=== PATIENT | female | born 1965 | race Hispanic/Latino ===

== ENCOUNTER 2022-04-04 14:57 | Inpatient (IN) | payer OTHER ==
[~2022-04-04] VITALS: Ht 149.9 cm; Wt 60.3 kg
[2022-04-04 15:28] LABS: BASOPHILS % (AUTO) 0.7 % (0.0-5.0); EOSINOPHILS % (AUTO) 3.3 % (0.0-8.0); HEMATOCRIT 27.1 % (36-48); LYMPHOCYTES % (AUTO) 12.3 % (21.0-51.0); MEAN CORPUSCULAR HEMOGLOBIN 28.3 pg (27.0-33.0); MEAN CORPUSCULAR HGB CONC 32.8 g/dL (32.0-36.0); MEAN CORPUSCULAR VOLUME 86.3 fL (79-99); MONOCYTES % (AUTO) 6.5 % (3.0-13.0); PLATELET COUNT (AUTO) 402 K/uL (130-400); RED BLOOD CELL COUNT(AUTO) 3.14 MIL/uL (4.00-5.50); RED CELL DISTRIBUTION WIDTH 13.6 % (11.0-15.5); WHITE BLOOD COUNT (AUTO) 8.7 K/uL (4.8-10.8)
[2022-04-04 15:39] LABS: CREATININE 1.7 mg/dL (0.5-1.5); POTASSIUM 4.3 mmol/L (3.5-5.1)
[2022-04-04 15:46] LABS: ALBUMIN 1.3 g/dL (3.5-5.0); BILIRUBIN,TOTAL 0.1 mg/dL (0.2-1.0); TOTAL PROTEIN, SERUM 5.5 g/dL (6.0-8.3)
[2022-04-04] MEDS ORDERED: IOHEXOL-350 75 ML VIAL IV ONE (17:20)
[2022-04-04] MEDS ORDERED: GLUCAGON 1MG KIT 1 MG ML IM PRN (20:30)
[2022-04-04] MEDS ORDERED: ACETAMINOPHEN 325 MG TAB PO PRN (20:30)
[2022-04-04] MEDS ORDERED: ONDANSETRON 4MG INJ IV PRN (20:30)
[2022-04-04] MEDS ORDERED: DIPHENHYDRAMINE HCL 25 MG CAPSULE PO PRN (20:30)
[2022-04-04] MEDS ORDERED: DEXTROSE 50%-WATER 50 ML DISP.SYRIN IV PRN (20:30)
[2022-04-04] MEDS ORDERED: ACETAMINOPHEN WITH CODEINE 1 TAB TAB PO PRN ×2 (20:30)
[2022-04-04] MEDS ORDERED: MAG/ALUM/SIMETH 30 ML UDCUP PO PRN (20:30)
[2022-04-04] MEDS: HYDRALAZINE 20MG/ML VIAL IV PRN (22:08)
[2022-04-04] MEDS: INSULIN HUMULIN R 100 UNIT/ML 3ML SQ SCH (22:09)
[2022-04-04 22:38] VITALS: BP 136/65
[2022-04-04] MEDS: 0.9%NACL 1000ML 1,000 ML IV SCH (23:00)
[2022-04-05 04:00] VITALS: BP 152/62
[2022-04-05 04:38] LABS: BASOPHILS % (AUTO) 0.5 % (0.0-5.0); EOSINOPHILS % (AUTO) 4.4 % (0.0-8.0); HEMATOCRIT 23.7 % (36-48); LYMPHOCYTES % (AUTO) 16.6 % (21.0-51.0); MEAN CORPUSCULAR HEMOGLOBIN 28.2 pg (27.0-33.0); MEAN CORPUSCULAR HGB CONC 33.3 g/dL (32.0-36.0); MEAN CORPUSCULAR VOLUME 84.6 fL (79-99); MONOCYTES % (AUTO) 8.4 % (3.0-13.0); NEUTROPHILS % (AUTO) 69.7 % (40.0-77.0); PLATELET COUNT (AUTO) 357 K/uL (130-400); RED CELL DISTRIBUTION WIDTH 13.6 % (11.0-15.5); WHITE BLOOD COUNT (AUTO) 7.5 K/uL (4.8-10.8)
[2022-04-05 05:01] LABS: ALBUMIN 1.2 g/dL (3.5-5.0); BILIRUBIN,TOTAL 0.1 mg/dL (0.2-1.0); CREATININE 1.5 mg/dL (0.5-1.5); MAGNESIUM 2.1 mg/dL (1.80-2.40); PHOSPHORUS 4.3 mg/dL (2.5-4.9); POTASSIUM 4.2 mmol/L (3.5-5.1)
[2022-04-05] MEDS: INSULIN HUMULIN R 100 UNIT/ML 3ML SQ SCH ×4 (06:37→20:59)
[2022-04-05 08:00] VITALS: BP 172/72
[2022-04-05 12:00] VITALS: BP 180/75
[2022-04-05] MEDS ORDERED: HYDROMORPHONE 0.5 MG SYG (0.5MG/0.5ML) IVP PRN ×2 (15:00)
[2022-04-05 16:00] VITALS: BP 176/76
[2022-04-05] MEDS ORDERED: ATOR40TA69 PO (16:02)
[2022-04-05] MEDS ORDERED: METF-446 PO (16:02)
[2022-04-05] MEDS ORDERED: METO50TA18 PO (16:02)
[2022-04-05] MEDS ORDERED: LISI20TA24 PO (16:02)
[2022-04-05] MEDS ORDERED: CLOP75TA14 PO (16:02)
[2022-04-05] MEDS ORDERED: AMLO-258 PO (16:02)
[2022-04-05 16:50] LABS: CHLORIDE,URINE RANDOM 85 mmol/L (110-250); POTASSIUM,URINE RANDOM 23 mmol/L (25-125); SODIUM,URINE RANDOM 74 mmol/l (40-220)
[2022-04-05 20:00] VITALS: BP 173/74
[2022-04-05] MEDS: ATORVASTATIN 40 MG TABLET PO SCH (20:38)
[2022-04-05] MEDS: METOPROLOL TARTRATE 50 MG TAB PO SCH (20:39)
[2022-04-05] MEDS: LISINOPRIL 20 MG TABLET PO SCH (20:39)
[2022-04-05 21:03] LABS: HEMOGLOBIN A1C 9.4 % (4.0-6.0)
[2022-04-06] VITALS (29 sets, daily range): BP systolic 118–172; BP diastolic 59–80
[2022-04-06] MEDS: 0.9%NACL 1000ML 1,000 ML IV SCH ×2 (03:44→21:44)
[2022-04-06] MEDS: HYDRALAZINE 20MG/ML VIAL IV PRN (04:24)
[2022-04-06 05:05] LABS: BASOPHILS % (AUTO) 0.7 % (0.0-5.0); EOSINOPHILS % (AUTO) 1.2 % (0.0-8.0); HEMATOCRIT 24.6 % (36-48); LYMPHOCYTES % (AUTO) 12.2 % (21.0-51.0); MEAN CORPUSCULAR HEMOGLOBIN 28.6 pg (27.0-33.0); MEAN CORPUSCULAR HGB CONC 33.3 g/dL (32.0-36.0); MEAN CORPUSCULAR VOLUME 85.7 fL (79-99); MONOCYTES % (AUTO) 4.6 % (3.0-13.0); NEUTROPHILS % (AUTO) 80.6 % (40.0-77.0); PLATELET COUNT (AUTO) 372 K/uL (130-400); RED BLOOD CELL COUNT(AUTO) 2.87 MIL/uL (4.00-5.50); RED CELL DISTRIBUTION WIDTH 13.8 % (11.0-15.5); WHITE BLOOD COUNT (AUTO) 8.4 K/uL (4.8-10.8)
[2022-04-06 05:25] LABS: ALBUMIN 1.2 g/dL (3.5-5.0); BILIRUBIN,TOTAL 0.2 mg/dL (0.2-1.0); CREATININE 1.8 mg/dL (0.5-1.5); POTASSIUM 4.5 mmol/L (3.5-5.1); TOTAL PROTEIN, SERUM 5.1 g/dL (6.0-8.3)
[2022-04-06] MEDS: INSULIN HUMULIN R 100 UNIT/ML 3ML SQ SCH ×4 (06:47→22:01)
[2022-04-06] MEDS: AMLODIPINE 5 MG TAB PO SCH (08:46)
[2022-04-06] MEDS: LISINOPRIL 20 MG TABLET PO SCH ×2 (08:46→21:45)
[2022-04-06] MEDS: METOPROLOL TARTRATE 50 MG TAB PO SCH ×2 (08:46→21:45)
[2022-04-06] MEDS ORDERED: CEFAZOLIN SODIUM 1 GM VIAL ONE (12:24)
[2022-04-06] MEDS ORDERED: CEFAZOLIN SODIUM 2 GM VIAL IV ONE (12:50)
[2022-04-06] MEDS ORDERED: MIDAZOLAM HCL 1 MG/ML 2ML VIAL ONE (12:55)
[2022-04-06] MEDS ORDERED: PROPOFOL 10 MG/ML 20ML VIAL IV ONE (12:55)
[2022-04-06] MEDS ORDERED: FENTANYL CITRATE PF 50 MCG/1 ML 2ML VIAL ONE (12:55)
[2022-04-06] MEDS ORDERED: ROCURONIUM 10MG/1ML SYR 10 MG/ML ML ONE ×2 (12:55→13:09)
[2022-04-06] MEDS ORDERED: CEFAZOLIN SODIUM 1 GM VIAL IVP PRN (13:00)
[2022-04-06] MEDS ORDERED: GLYCOPYRROLATE 1 MG/5 ML SYRINGE ONE (13:16)
[2022-04-06] MEDS ORDERED: EPHEDRINE SULFATE 50 MG/ML AMPULE ONE (13:30)
[2022-04-06] MEDS ORDERED: ROPIVACAINE 0.5% 5MG/ML 30ML IJ ONE (14:19)
[2022-04-06] MEDS ORDERED: NEOSTIGMINE 5MG/5ML SYR IV ONE (14:32)
[2022-04-06] MEDS ORDERED: ONDANSETRON 4MG INJ ONE (14:46)
[2022-04-06] MEDS ORDERED: MEPERIDINE-PF 25 MG/ML SYG ONE ×2 (14:51→15:02)
[2022-04-06] MEDS ORDERED: FERROUS FUMARATE 324 MG TABLET PO PRN (15:00)
[2022-04-06] MEDS ORDERED: CALCIUM CARB 500MG PO PRN (15:00)
[2022-04-06] MEDS ORDERED: LIDOCAINE HCL-MPF 1% 2ML VIAL IV PRN (15:00)
[2022-04-06] MEDS ORDERED: POTASSIUM CHLORIDE 20MEQ/100ML 100 ML IV PRN (15:00)
[2022-04-06] MEDS ORDERED: POTASSIUM CHLORIDE 10% ELIXIR 20 MEQ/15 ML UDCUP PO PRN (15:00)
[2022-04-06] MEDS ORDERED: KCL 20 MEQ ERTAB PO PRN (15:00)
[2022-04-06] MEDS: FAMOTIDINE 20MG TAB PO SCH (21:44)
[2022-04-06] MEDS: ATORVASTATIN 40 MG TABLET PO SCH (21:44)
[2022-04-06] MEDS: CEFAZOLIN SODIUM 1 GM VIAL IVP SCH (21:44)
[2022-04-06] MEDS: TRAMADOL HCL 50 MG TABLET PO PRN (21:45)
[2022-04-07] VITALS (7 sets, daily range): BP systolic 153–178; BP diastolic 67–79
[2022-04-07 04:11] LABS: HEMATOCRIT 25.2 % (36-48); MEAN CORPUSCULAR HEMOGLOBIN 28.1 pg (27.0-33.0); MEAN CORPUSCULAR HGB CONC 31.7 g/dL (32.0-36.0); MEAN CORPUSCULAR VOLUME 88.4 fL (79-99); RED BLOOD CELL COUNT(AUTO) 2.85 MIL/uL (4.00-5.50); RED CELL DISTRIBUTION WIDTH 13.6 % (11.0-15.5); WHITE BLOOD COUNT (AUTO) 11.2 K/uL (4.8-10.8)
[2022-04-07 04:18] LABS: INR 0.93 (0.85-1.15); PROTHROMBIN TIME 9.7 SEC (9.6-11.6)
[2022-04-07 04:25] LABS: POTASSIUM 4.3 mmol/L (3.5-5.1)
[2022-04-07] MEDS: CEFAZOLIN SODIUM 1 GM VIAL IVP SCH (04:56)
[2022-04-07] MEDS: INSULIN HUMULIN R 100 UNIT/ML 3ML SQ SCH ×4 (06:32→20:18)
[2022-04-07] MEDS: FAMOTIDINE 20MG TAB PO SCH (08:37)
[2022-04-07] MEDS: AMLODIPINE 5 MG TAB PO SCH (08:37)
[2022-04-07] MEDS: METOPROLOL TARTRATE 50 MG TAB PO SCH ×2 (08:38→20:18)
[2022-04-07] MEDS: LISINOPRIL 20 MG TABLET PO SCH ×2 (08:38→20:18)
[2022-04-07] MEDS: POLYETHYLENE GLYCOL 3350 17 GM POWD.PACK PO SCH (08:38)
[2022-04-07] MEDS: TRAMADOL HCL 50 MG TABLET PO PRN (08:38)
[2022-04-07] MEDS ORDERED: METFORMIN HCL 500 MG TABLET ONE (11:40)
[2022-04-07] MEDS: CLOPIDOGREL 75MG TAB PO SCH (11:43)
[2022-04-07] MEDS ORDERED: TRAM50TA4 PO (12:16)
[2022-04-07] MEDS: METFORMIN HCL 500 MG TABLET PO SCH (17:04)
[2022-04-07] MEDS: ATORVASTATIN 40 MG TABLET PO SCH (20:17)
[2022-04-08 03:43] VITALS: BP 170/82
[2022-04-08 04:59] LABS: HEMATOCRIT 27.9 % (36-48); MEAN CORPUSCULAR VOLUME 85.1 fL (79-99); RED BLOOD CELL COUNT(AUTO) 3.28 MIL/uL (4.00-5.50); RED CELL DISTRIBUTION WIDTH 13.6 % (11.0-15.5); WHITE BLOOD COUNT (AUTO) 8.3 K/uL (4.8-10.8)
[2022-04-08 05:13] LABS: INR 0.94 (0.85-1.15); PROTHROMBIN TIME 10.3 SEC (9.6-11.6)
[2022-04-08 05:29] LABS: CREATININE 2.3 mg/dL (0.5-1.5); POTASSIUM 4.1 mmol/L (3.5-5.1)
[2022-04-08] MEDS: INSULIN HUMULIN R 100 UNIT/ML 3ML SQ SCH ×2 (06:28→11:30)
[2022-04-08 08:00] VITALS: BP 181/84
[2022-04-08] MEDS ORDERED: 0.9% NACL 500ML IV.SOLN 500 ML IV ONE (08:30)
[2022-04-08] MEDS: LISINOPRIL 20 MG TABLET PO SCH (08:55)
[2022-04-08] MEDS: METOPROLOL TARTRATE 50 MG TAB PO SCH (08:55)
[2022-04-08] MEDS: AMLODIPINE 5 MG TAB PO SCH (08:55)
[2022-04-08] MEDS: CLOPIDOGREL 75MG TAB PO SCH (09:57)
[2022-04-08] MEDS: FAMOTIDINE 20MG TAB PO SCH (09:57)
[2022-04-08] MEDS: METFORMIN HCL 500 MG TABLET PO SCH (09:58)
[2022-04-08] MEDS: POLYETHYLENE GLYCOL 3350 17 GM POWD.PACK PO SCH (09:58)
[2022-04-08 12:00] VITALS: BP 182/69
[2022-04-08] MEDS ORDERED: METOPROLOL TARTRATE 1 MG/ML 5ML VIAL IV SCH (13:00)
[2022-04-08 13:53] VITALS: BP 177/75
[2022-04-08 14:45] VITALS: BP 169/62
[2022-04-08] MEDS ORDERED: BISACODYL 5 MG TABLET.DR PO PRN (15:00)
[2022-04-09] MEDS ORDERED: BISACODYL 10 MG SUPP.RECT RC PRN (15:00)
== END 2022-04-08 18:00 | disposition home or self-care (01) | DRG 481 ==
LOC: EDH 14:57 → EDHIP 14:58 → OBSVTOIN 14:58 → INTOOBSV 14:58 → 4AH 22:38
PROVIDERS: ADMIT Internal Medicine; ATTEND Internal Medicine
PROC: 0QS634Z Reposition Right Upper Femur with Internal Fixation Device, Percutaneous Approach (ICD-10-PCS; principal; 2022-04-06 13:26)
DX: S72.011A Unspecified intracapsular fracture of right femur, initial encounter for closed fracture (principal); N17.9 Acute kidney failure, unspecified; I69.351 Hemiplegia and hemiparesis following cerebral infarction affecting right dominant side; I10 Essential (primary) hypertension; E11.9 Type 2 diabetes mellitus without complications; E78.5 Hyperlipidemia, unspecified; Z20.822 Contact with and (suspected) exposure to COVID-19; Z79.899 Other long term (current) drug therapy; I48.91 Unspecified atrial fibrillation; Z79.84 Long term (current) use of oral hypoglycemic drugs; W18.39XA Other fall on same level, initial encounter; Y93.89 Activity, other specified; Y92.89 Other specified places as the place of occurrence of the external cause; Y99.8 Other external cause status
CPT/HCPCS: 36415; 72193; 73503; 76770; 80048; 80051; 80053; 82948; 83036; 83735; 84100; 85025; 85027; 85610; 87635; 92610; 97039; A4606; G0378; J0360; J0690; J1170; J1815; J2175; J2250; J2405; J2704; J2710; J2795; J3010; J3490; J7030; J7040; J7120; Q9967

== ENCOUNTER 2022-08-26 14:39 | Inpatient (IN) | payer OTHER ==
[~2022-08-26] VITALS: Ht 149.9 cm; Wt 68.2 kg
[~2022-08-26 14:39] MED LIST: AMLO-258 PO; ATOR40TA69 PO; CLOP-31 PO; LISI20TA24 PO; METF-446 PO; METO50TA18 PO
[2022-08-26 15:09] LABS: EOSINOPHILS % (AUTO) 5.9 % (0.0-8.0); LYMPHOCYTES % (AUTO) 15.3 % (21.0-51.0); MEAN CORPUSCULAR HEMOGLOBIN 29.5 pg (27.0-33.0); MEAN CORPUSCULAR HGB CONC 33.8 g/dL (32.0-36.0); MEAN CORPUSCULAR VOLUME 87.2 fL (79-99); MONOCYTES % (AUTO) 5.3 % (3.0-13.0); NEUTROPHILS % (AUTO) 72.2 % (40.0-77.0); NUCLEATED RED BLOOD CELLS 0.6 % (0.0-0.19); PLATELET COUNT (AUTO) 370 K/uL (130-400); RED BLOOD CELL COUNT(AUTO) 2.98 MIL/uL (4.00-5.50); RED CELL DISTRIBUTION WIDTH 15.7 % (11.0-15.5); WHITE BLOOD COUNT (AUTO) 6.3 K/uL (4.8-10.8)
[2022-08-26 15:39] LABS: CREATININE 3.4 mg/dL (0.5-1.5)
[2022-08-26 15:42] LABS: APPEARANCE,URINE CLOUDY (CLEAR); BILIRUBIN,URINE NEGATIVE (NEGATIVE); COLOR,URINE LIGHT-YELLOW (YELLOW); GLUCOSE, URINE (UA) 150 mg/dL (NEGATIVE); KETONES,URINE 5 mg/dL (NEGATIVE); LEUKOCYTE ESTERASE ,URINE 250 Leu/uL (NEGATIVE); NITRATE,URINE NEGATIVE (NEGATIVE); OCCULT BLOOD,URINE MODERATE (NEGATIVE); PROTEIN,URINE 600 mg/dL (NEGATIVE); UROBILINOGEN,URINE 0.2 mg/dL (0.2-1.0)
[2022-08-26 15:47] LABS: ALBUMIN 1.7 g/dL (3.5-5.0); TOTAL PROTEIN, SERUM 5.3 g/dL (6.0-8.3)
[2022-08-26 15:53] LABS: BACTERIA,URINE MOD /HPF (None Seen); MUCUS,URINE FEW LPF (None Seen); SQUAMOUS EPITHELIAL CELL,UR FEW /HPF (0-2); WBC,URINE 51-100 /HPF (0-1)
[2022-08-26] MEDS ORDERED: ONDANSETRON 4MG INJ IV PRN (18:30)
[2022-08-26] MEDS ORDERED: ACETAMINOPHEN 325 MG TAB PO PRN (18:30)
[2022-08-26 19:08] LABS: RETICULOCYTE % (AUTO) 3.13 % (0.42-2.23)
[2022-08-26 19:15] LABS: HEMOGLOBIN A1C 6.3 % (4.0-6.0)
[2022-08-26 19:23] LABS: INR 0.93 (0.85-1.15); PROTHROMBIN TIME 9.7 SEC (9.6-11.6)
[2022-08-26 19:24] LABS: PARTIAL THROMBOPLASTIN TIME 33.6 SEC (26.3-35.5)
[2022-08-26 19:36] LABS: % IRON SATURATION 15.7 % (22-44)
[2022-08-26 19:40] LABS: MAGNESIUM 1.6 mg/dL (1.80-2.40); PHOSPHORUS 4.8 mg/dL (2.5-4.9)
[2022-08-26 20:10] LABS: THYROID STIMULATING HORMONE 108.07 uIU/mL (0.36-3.74)
[2022-08-26] MEDS: HEPARIN 5,000 UNIT VIAL SQ SCH (20:49)
[2022-08-26] MEDS: HYDRALAZINE 25MG TABLET PO SCH (20:49)
[2022-08-26] MEDS: 0.9%NACL 1000ML 1,000 ML IV SCH (20:49)
[2022-08-26] MEDS: BISACODYL 5 MG TABLET.DR PO SCH (20:49)
[2022-08-26] MEDS: CEFTRIAXONE 1G VIAL IVP SCH (20:49)
[2022-08-26] MEDS: ACETAMINOPHEN 325 MG TAB PO PRN (21:02)
[2022-08-26 21:37] LABS: CHLORIDE,URINE RANDOM 52 mmol/L (110-250); POTASSIUM,URINE RANDOM 25 mmol/L (25-125)
[2022-08-26] MEDS: ISOSORBIDE DINITRATE 10MG TAB PO SCH (22:25)
[2022-08-27 00:26] VITALS: BP 128/64
[2022-08-27 03:46] VITALS: BP 176/67
[2022-08-27 03:49] LABS: BASOPHILS % (AUTO) 1.1 % (0.0-5.0); EOSINOPHILS % (AUTO) 5.7 % (0.0-8.0); HEMATOCRIT 24.9 % (36-48); MEAN CORPUSCULAR HEMOGLOBIN 29.5 pg (27.0-33.0); MEAN CORPUSCULAR HGB CONC 33.3 g/dL (32.0-36.0); MEAN CORPUSCULAR VOLUME 88.6 fL (79-99); MONOCYTES % (AUTO) 5.2 % (3.0-13.0); NEUTROPHILS % (AUTO) 72.8 % (40.0-77.0); NUCLEATED RED BLOOD CELLS 0.3 % (0.0-0.19); PLATELET COUNT (AUTO) 351 K/uL (130-400); RED BLOOD CELL COUNT(AUTO) 2.81 MIL/uL (4.00-5.50); RED CELL DISTRIBUTION WIDTH 15.7 % (11.0-15.5); WHITE BLOOD COUNT (AUTO) 6.3 K/uL (4.8-10.8)
[2022-08-27 04:03] LABS: ALBUMIN 1.6 g/dL (3.5-5.0); CREATININE 3.4 mg/dL (0.5-1.5)
[2022-08-27 04:19] LABS: B-TYPE NATRIURETIC PEPTIDE 276 pg/mL (0-100)
[2022-08-27 07:12] VITALS: BP 171/73
[2022-08-27] MEDS: FAMOTIDINE 20MG VIAL IV SCH (08:57)
[2022-08-27] MEDS: BISACODYL 5 MG TABLET.DR PO SCH ×2 (08:57→20:22)
[2022-08-27] MEDS: ISOSORBIDE DINITRATE 10MG TAB PO SCH ×3 (08:57→20:22)
[2022-08-27] MEDS: HYDRALAZINE 25MG TABLET PO SCH ×6 (08:57→20:24)
[2022-08-27] MEDS: HEPARIN 5,000 UNIT VIAL SQ SCH ×2 (08:58→20:24)
[2022-08-27] MEDS: 0.9%NACL 1000ML 1,000 ML IV SCH (08:59)
[2022-08-27] MEDS ORDERED: COMPOUND IV MISC 1 EACH IVSOLN MISC PRN (09:30)
[2022-08-27] MEDS ORDERED: EPOETIN ALFA-EPBX (NON-ESRD) 10,000 UNIT/ML VIAL SQ SCH (09:30)
[2022-08-27 10:01] LABS: MYOGLOBIN 622 ng/mL (10-92)
[2022-08-27 10:05] LABS: PROTEIN,URINE RANDOM 1240.3 mg/dL (0-11.9)
[2022-08-27 10:06] LABS: CREATINE KINASE, TOTAL 1025 U/L (21-232)
[2022-08-27] MEDS: SODIUM BICARBONATE 650 MG TAB PO SCH ×2 (10:28→20:24)
[2022-08-27] MEDS: LEVOTHYROXINE 75 MCG TABLET PO SCH (10:28)
[2022-08-27] MEDS: FUROSEMIDE 40MG VIAL IV SCH ×2 (10:29→16:59)
[2022-08-27] MEDS: IRON SUCROSE COMPLEX 300 MG in 0.9%NACL 50ML 50 ML IV SCH (10:29)
[2022-08-27 12:11] VITALS: BP 148/63
[2022-08-27 16:12] VITALS: BP 183/79
[2022-08-27] MEDS: CEFTRIAXONE 1G VIAL IVP SCH (16:59)
[2022-08-27 19:54] VITALS: BP 176/73
[2022-08-27] MEDS: ACETAMINOPHEN 325 MG TAB PO PRN (20:23)
[2022-08-28] VITALS (9 sets, daily range): BP systolic 128–182; BP diastolic 53–83
[2022-08-28] MEDS ORDERED: LABETALOL 20MG VIAL IV ONE (00:30)
[2022-08-28 04:44] LABS: BASOPHILS % (AUTO) 0.8 % (0.0-5.0); LYMPHOCYTES % (AUTO) 8.5 % (21.0-51.0); MEAN CORPUSCULAR HEMOGLOBIN 29.4 pg (27.0-33.0); MEAN CORPUSCULAR HGB CONC 32.1 g/dL (32.0-36.0); MEAN CORPUSCULAR VOLUME 91.6 fL (79-99); MONOCYTES % (AUTO) 5.6 % (3.0-13.0); NEUTROPHILS % (AUTO) 80.7 % (40.0-77.0); NUCLEATED RED BLOOD CELLS 0.7 % (0.0-0.19); PLATELET COUNT (AUTO) 328 K/uL (130-400); RED BLOOD CELL COUNT(AUTO) 2.62 MIL/uL (4.00-5.50); WHITE BLOOD COUNT (AUTO) 7.2 K/uL (4.8-10.8)
[2022-08-28 04:56] LABS: ALBUMIN 1.5 g/dL (3.5-5.0); CREATININE 3.4 mg/dL (0.5-1.5); MAGNESIUM 1.6 mg/dL (1.80-2.40); PHOSPHORUS 4.9 mg/dL (2.5-4.9); POTASSIUM 4.8 mmol/L (3.5-5.1)
[2022-08-28 05:03] LABS: INR 0.93 (0.85-1.15); PROTHROMBIN TIME 9.4 SEC (9.6-11.6)
[2022-08-28] MEDS: LEVOTHYROXINE 50 MCG TABLET PO SCH (05:47)
[2022-08-28] MEDS: FUROSEMIDE 40MG VIAL IV SCH ×3 (05:47→18:37)
[2022-08-28] MEDS ORDERED: DEXTROSE 50%-WATER 50 ML DISP.SYRIN IV ONE (05:58)
[2022-08-28] MEDS: ISOSORBIDE DINITRATE 10MG TAB PO SCH ×2 (08:28→22:27)
[2022-08-28] MEDS: HYDRALAZINE 25MG TABLET PO SCH ×4 (08:29→22:28)
[2022-08-28] MEDS: BISACODYL 5 MG TABLET.DR PO SCH (09:00)
[2022-08-28] MEDS: HEPARIN 5,000 UNIT VIAL SQ SCH ×2 (09:00→22:35)
[2022-08-28] MEDS: FAMOTIDINE 20MG VIAL IV SCH (09:48)
[2022-08-28] MEDS: SODIUM BICARBONATE 650 MG TAB PO SCH ×2 (09:48→22:27)
[2022-08-28] MEDS: IRON SUCROSE COMPLEX 300 MG in 0.9%NACL 50ML 50 ML IV SCH (09:48)
[2022-08-28 09:59] LABS: GLUCOSE,BODY FLUID 91 mg/dL (1-40)
[2022-08-28] MEDS: LEVOTHYROXINE 75 MCG TABLET PO SCH (10:00)
[2022-08-28] MEDS ORDERED: LIDOCAINE HCL 1% 20 ML VIAL ONE (10:12)
[2022-08-28 10:34] LABS: ALBUMIN,BODY FLUID 0.1 g/dL
[2022-08-28] MEDS ORDERED: RENAL DOSE IV SCH (14:30)
[2022-08-28] MEDS ORDERED: NIFEDIPINE 10 MG CAP PO SCH (14:30)
[2022-08-28 14:53] LABS: SPECIMENTYPE,BODY FLUID THORACENTESIS; TOTAL VOLUME,BODY FLUID 700 mL
[2022-08-28 14:54] LABS: APPEARANCE BODY FLUID SLIGHTLY CLOUDY (CLEAR); BODY FLUID RBC 975 /cu. mm.; BODY FLUID WBC 38 /cu. mm.
[2022-08-28] MEDS: MAGNESIUM 2GM PREMIX 50ML 50 ML IV SCH (14:54)
[2022-08-28 14:55] LABS: COLOR,BODY FLUID LT YELLOW (LT YELLOW)
[2022-08-28 14:58] LABS: BF LYMPHOCYTE 71 %; BF MONOCYTE 14 %
[2022-08-28 15:00] LABS: PH, BODY FLUID 7
[2022-08-28] MEDS: MEROPENEM 500 MG VIAL IVP SCH (15:41)
[2022-08-28 17:31] LABS: CREATININE,SERUM FOR CRCL 3.4 mg/dL (0.6-1.3)
[2022-08-28] MEDS ORDERED: PHARMACY COMMUNICATION MISC SCH (18:00)
[2022-08-28 18:09] LABS: COLLECTION PERIOD,URINE 24 HR; TOTAL VOLUME 24HRS,URINE 1700 mL; TPROTEIN TIMED,URINE 384 mg/dL; TPROTEIN U,24HR CALC 6528 mg/24HR (0-165)
[2022-08-28] MEDS ORDERED: ALBUMIN (HUMAN) 25% 50 ML IV SCH (21:00)
[2022-08-28] MEDS: NIFEDIPINE 10 MG CAP PO SCH (22:28)
[2022-08-29] MEDS: FUROSEMIDE 40MG VIAL IV SCH ×2 (03:01→09:18)
[2022-08-29] MEDS: MEROPENEM 500 MG VIAL IVP SCH ×2 (03:01→15:09)
[2022-08-29 03:41] VITALS: BP 126/56
[2022-08-29 04:45] LABS: BASOPHILS % (AUTO) 0.7 % (0.0-5.0); EOSINOPHILS % (AUTO) 3.8 % (0.0-8.0); HEMATOCRIT 22.7 % (36-48); LYMPHOCYTES % (AUTO) 9.6 % (21.0-51.0); MEAN CORPUSCULAR HEMOGLOBIN 29.3 pg (27.0-33.0); MEAN CORPUSCULAR VOLUME 88.7 fL (79-99); NEUTROPHILS % (AUTO) 78.5 % (40.0-77.0); NUCLEATED RED BLOOD CELLS 1.2 % (0.0-0.19); PLATELET COUNT (AUTO) 315 K/uL (130-400); RED BLOOD CELL COUNT(AUTO) 2.56 MIL/uL (4.00-5.50); RED CELL DISTRIBUTION WIDTH 15.8 % (11.0-15.5); WHITE BLOOD COUNT (AUTO) 8.4 K/uL (4.8-10.8)
[2022-08-29 05:07] LABS: CREATININE 3.7 mg/dL (0.5-1.5); POTASSIUM 4.5 mmol/L (3.5-5.1)
[2022-08-29] MEDS: LEVOTHYROXINE 50 MCG TABLET PO SCH (06:53)
[2022-08-29 08:00] VITALS: BP 134/62
[2022-08-29] MEDS: LEVOTHYROXINE 75 MCG TABLET PO SCH (08:31)
[2022-08-29] MEDS: ISOSORBIDE DINITRATE 10MG TAB PO SCH ×2 (09:05→21:01)
[2022-08-29] MEDS: HYDRALAZINE 25MG TABLET PO SCH ×3 (09:05→21:02)
[2022-08-29] MEDS: SODIUM BICARBONATE 650 MG TAB PO SCH ×3 (09:05→21:02)
[2022-08-29] MEDS: NIFEDIPINE 10 MG CAP PO SCH ×3 (09:05→21:01)
[2022-08-29] MEDS: HEPARIN 5,000 UNIT VIAL SQ SCH ×2 (09:12→21:35)
[2022-08-29] MEDS: IRON SUCROSE COMPLEX 300 MG in 0.9%NACL 50ML 50 ML IV SCH (09:13)
[2022-08-29 11:54] LABS: HEMOGLOBIN A1C 6.5 % (4.0-6.0)
[2022-08-29 12:00] VITALS: BP 103/47
[2022-08-29 16:00] VITALS: BP 128/62
[2022-08-29 18:41] LABS: HEPATITIS B SURFACE ANTIGEN Non-Reactive (Nonreactive)
[2022-08-29 20:03] VITALS: BP 151/70
[2022-08-29 23:48] VITALS: BP 114/59
[2022-08-30 04:13] VITALS: BP 138/64
[2022-08-30 05:09] LABS: BASOPHILS % (AUTO) 0.5 % (0.0-5.0); EOSINOPHILS % (AUTO) 2.4 % (0.0-8.0); HEMATOCRIT 22.9 % (36-48); LYMPHOCYTES % (AUTO) 6.7 % (21.0-51.0); MEAN CORPUSCULAR HEMOGLOBIN 29.3 pg (27.0-33.0); MEAN CORPUSCULAR HGB CONC 32.8 g/dL (32.0-36.0); MEAN CORPUSCULAR VOLUME 89.5 fL (79-99); MONOCYTES % (AUTO) 4.9 % (3.0-13.0); NUCLEATED RED BLOOD CELLS 2.3 % (0.0-0.19); PLATELET COUNT (AUTO) 321 K/uL (130-400); RED BLOOD CELL COUNT(AUTO) 2.56 MIL/uL (4.00-5.50); RED CELL DISTRIBUTION WIDTH 16.1 % (11.0-15.5); WHITE BLOOD COUNT (AUTO) 8.2 K/uL (4.8-10.8)
[2022-08-30 05:33] LABS: ALBUMIN 1.5 g/dL (3.5-5.0); CREATININE 3.7 mg/dL (0.5-1.5); MAGNESIUM 1.6 mg/dL (1.80-2.40); POTASSIUM 4.7 mmol/L (3.5-5.1); TOTAL PROTEIN, SERUM 5.1 g/dL (6.0-8.3)
[2022-08-30] MEDS: LEVOTHYROXINE 50 MCG TABLET PO SCH (06:26)
[2022-08-30] MEDS: MEROPENEM 500 MG VIAL IVP SCH ×2 (06:26→14:06)
[2022-08-30] MEDS: MAGNESIUM 2GM PREMIX 50ML 50 ML IV SCH (06:40)
[2022-08-30] MEDS: NIFEDIPINE 10 MG CAP PO SCH ×3 (08:03→21:49)
[2022-08-30] MEDS: ISOSORBIDE DINITRATE 10MG TAB PO SCH ×2 (08:04→21:49)
[2022-08-30] MEDS: HYDRALAZINE 25MG TABLET PO SCH ×3 (08:04→21:48)
[2022-08-30] MEDS: SODIUM BICARBONATE 650 MG TAB PO SCH ×3 (08:04→21:49)
[2022-08-30] MEDS: LEVOTHYROXINE 75 MCG TABLET PO SCH (08:06)
[2022-08-30] MEDS: HEPARIN 5,000 UNIT VIAL SQ SCH ×2 (08:06→21:57)
[2022-08-30 08:14] VITALS: BP 149/67
[2022-08-30 08:48] LABS: CREATINE KINASE, TOTAL 1121 U/L (21-232)
[2022-08-30 08:56] LABS: RAPID PLASMA REAGIN NONREACTIVE (NONREACTIVE)
[2022-08-30 09:16] LABS: MYOGLOBIN 912 ng/mL (10-92)
[2022-08-30] MEDS: IRON SUCROSE COMPLEX 300 MG in 0.9%NACL 50ML 50 ML IV SCH (09:34)
[2022-08-30 10:59] VITALS: BP 101/47
[2022-08-30] MEDS: 0.9%NACL 1000ML 1,000 ML IV SCH (11:26)
[2022-08-30 15:27] LABS: ABG BASE EXCESS -11.4 mmol/L (-2.0-3.0); ABG HCO3 14.9 mmol/L (21.0-28.0); ABG PCO2 35 mmHg (32-45)
[2022-08-30 16:02] VITALS: BP 99/57
[2022-08-30 20:08] VITALS: BP 117/56
[2022-08-30 23:38] VITALS: BP 82/45
[2022-08-31] VITALS (14 sets, daily range): BP systolic 88–134; BP diastolic 43–87
[2022-08-31] MEDS: 0.9%NACL 1000ML 1,000 ML IV SCH (00:50)
[2022-08-31] MEDS: MEROPENEM 500 MG VIAL IVP SCH ×2 (03:08→14:09)
[2022-08-31 03:21] LABS: ABG BASE EXCESS -12.7 mmol/L (-2.0-3.0); ABG HCO3 12.4 mmol/L (21.0-28.0); ABG OXYGEN SATURATION 94.5 % (95.0-99.0); ABG PCO2 28 mmHg (32-45)
[2022-08-31 05:18] LABS: EOSINOPHILS % (AUTO) 0.4 % (0.0-8.0); HEMATOCRIT 23.3 % (36-48); MEAN CORPUSCULAR HGB CONC 33.5 g/dL (32.0-36.0); MEAN CORPUSCULAR VOLUME 89.6 fL (79-99); MONOCYTES % (AUTO) 2.9 % (3.0-13.0); PLATELET COUNT (AUTO) 300 K/uL (130-400); RED CELL DISTRIBUTION WIDTH 16.1 % (11.0-15.5); WHITE BLOOD COUNT (AUTO) 7.5 K/uL (4.8-10.8)
[2022-08-31 05:19] LABS: BASOPHILS % (AUTO) 0.3 % (0.0-5.0); NUCLEATED RED BLOOD CELLS 0.7 % (0.0-0.19)
[2022-08-31 05:44] LABS: CREATININE 3.8 mg/dL (0.5-1.5); POTASSIUM 4.6 mmol/L (3.5-5.1)
[2022-08-31 06:29] LABS: MYOGLOBIN 1454 ng/mL (10-92)
[2022-08-31 06:32] LABS: CREATINE KINASE, TOTAL 1358 U/L (21-232)
[2022-08-31] MEDS: LEVOTHYROXINE 50 MCG TABLET PO SCH (07:01)
[2022-08-31] MEDS: SODIUM BICARBONATE 650 MG TAB PO SCH ×3 (08:35→20:29)
[2022-08-31] MEDS: NIFEDIPINE 10 MG CAP PO SCH ×3 (08:35→20:28)
[2022-08-31] MEDS: ISOSORBIDE DINITRATE 10MG TAB PO SCH ×2 (08:35→20:29)
[2022-08-31] MEDS: HYDRALAZINE 25MG TABLET PO SCH ×3 (08:35→20:29)
[2022-08-31] MEDS: HEPARIN 5,000 UNIT VIAL SQ SCH ×3 (08:40→20:32)
[2022-08-31 09:31] LABS: INR 0.93 (0.85-1.15); PROTHROMBIN TIME 9.8 SEC (9.6-11.6)
[2022-08-31 09:32] LABS: PARTIAL THROMBOPLASTIN TIME 55.1 SEC (26.3-35.5)
[2022-08-31 15:24] LABS: TOTAL PROTEIN, SERUM 4.5 g/dL (6.0-8.3)
[2022-09-01] VITALS: BP 127/51
[2022-09-01] MEDS: MEROPENEM 500 MG VIAL IVP SCH ×2 (02:19→15:26)
[2022-09-01] MEDS: 0.9%NACL 1000ML 1,000 ML IV SCH (02:20)
[2022-09-01 03:46] LABS: MEAN CORPUSCULAR HEMOGLOBIN 29.7 pg (27.0-33.0); MEAN CORPUSCULAR HGB CONC 33.5 g/dL (32.0-36.0); MEAN CORPUSCULAR VOLUME 88.6 fL (79-99); RED BLOOD CELL COUNT(AUTO) 2.36 MIL/uL (4.00-5.50); RED CELL DISTRIBUTION WIDTH 15.9 % (11.0-15.5); WHITE BLOOD COUNT (AUTO) 10.7 K/uL (4.8-10.8)
[2022-09-01 03:55] LABS: HEMATOCRIT 20.9 % (36-48)
[2022-09-01 03:56] LABS: CREATININE 3.4 mg/dL (0.5-1.5); MAGNESIUM 1.7 mg/dL (1.80-2.40); POTASSIUM 4.1 mmol/L (3.5-5.1)
[2022-09-01 04:00] VITALS: BP 134/65
[2022-09-01] MEDS: LEVOTHYROXINE 50 MCG TABLET PO SCH (05:50)
[2022-09-01 07:58] LABS: HEMATOCRIT 24.8 % (36-48)
[2022-09-01 08:00] VITALS: BP 98/74
[2022-09-01] MEDS: HEPARIN 5,000 UNIT VIAL SQ SCH ×2 (09:00→21:32)
[2022-09-01] MEDS: NIFEDIPINE 10 MG CAP PO SCH ×3 (09:00→21:12)
[2022-09-01] MEDS ORDERED: LEVOTHYROXINE 100MCG VIAL IV SCH (10:30)
[2022-09-01] MEDS: 1/2 NS IVP SCH (11:08)
[2022-09-01] MEDS: SODIUM BICARB 8.4% IVP SCH (11:08)
[2022-09-01] MEDS: SYRING IVP SCH (11:08)
[2022-09-01] MEDS: HYDRALAZINE 25MG TABLET PO SCH ×3 (11:09→21:11)
[2022-09-01] MEDS: ISOSORBIDE DINITRATE 10MG TAB PO SCH ×2 (11:09→21:10)
[2022-09-01 12:48] VITALS: BP 184/75
[2022-09-01 15:42] VITALS: BP 136/80
[2022-09-01 18:56] LABS: ABG BASE EXCESS -11.2 mmol/L (-2.0-3.0); ABG OXYGEN SATURATION 83.5 % (95.0-99.0); ABG PCO2 30 mmHg (32-45)
[2022-09-01 20:00] VITALS: BP 142/66
[2022-09-02] VITALS: BP 115/49
[2022-09-02] MEDS: 1/2 NS IVP SCH ×2 (00:08→13:17)
[2022-09-02] MEDS: SYRING IVP SCH ×2 (00:08→13:17)
[2022-09-02] MEDS: SODIUM BICARB 8.4% IVP SCH ×2 (00:08→13:17)
[2022-09-02] MEDS: MEROPENEM 500 MG VIAL IVP SCH ×2 (03:13→14:04)
[2022-09-02 04:00] VITALS: BP 117/56
[2022-09-02 04:49] LABS: HEMATOCRIT 22.4 % (36-48); MEAN CORPUSCULAR HEMOGLOBIN 29.6 pg (27.0-33.0); MEAN CORPUSCULAR VOLUME 89.6 fL (79-99); RED BLOOD CELL COUNT(AUTO) 2.5 MIL/uL (4.00-5.50); RED CELL DISTRIBUTION WIDTH 16.3 % (11.0-15.5); WHITE BLOOD COUNT (AUTO) 9.9 K/uL (4.8-10.8)
[2022-09-02 05:10] LABS: CREATININE 3.7 mg/dL (0.5-1.5); MAGNESIUM 1.9 mg/dL (1.80-2.40); POTASSIUM 4.4 mmol/L (3.5-5.1)
[2022-09-02] MEDS: LEVOTHYROXINE 50 MCG TABLET PO SCH (06:17)
[2022-09-02 08:00] VITALS: BP 119/60
[2022-09-02] MEDS: ISOSORBIDE DINITRATE 10MG TAB PO SCH ×2 (08:56→20:47)
[2022-09-02] MEDS: IRON SUCROSE COMPLEX 100 MG/5 ML VIAL IVP SCH (08:56)
[2022-09-02] MEDS: HYDRALAZINE 25MG TABLET PO SCH ×3 (08:57→20:47)
[2022-09-02] MEDS: HEPARIN 5,000 UNIT VIAL SQ SCH ×2 (08:59→20:49)
[2022-09-02] MEDS ORDERED: IRON SUCROSE COMPLEX 100 MG in 0.9%NACL 50ML 50 ML IV SCH (09:00)
[2022-09-02] MEDS: NIFEDIPINE 10 MG CAP PO SCH ×3 (09:46→20:48)
[2022-09-02] MEDS ORDERED: DEXTROSE 50%-WATER 50 ML DISP.SYRIN IV ONE (11:29)
[2022-09-02 12:00] VITALS: BP 162/70
[2022-09-02] MEDS ORDERED: DEXTROSE 50%-WATER 50 ML DISP.SYRIN IV PRN (12:30)
[2022-09-02] MEDS ORDERED: GLUCAGON 1MG KIT 1 MG ML IM PRN (12:30)
[2022-09-02 12:50] LABS: ABG BASE EXCESS -5.7 mmol/L (-2.0-3.0); ABG HCO3 15.2 mmol/L (21.0-28.0); ABG OXYGEN SATURATION 98.5 % (95.0-99.0); ABG PCO2 21 mmHg (32-45)
[2022-09-02] MEDS: ACETAMINOPHEN 325 MG TAB PO PRN (12:58)
[2022-09-02 16:00] VITALS: BP 123/57
[2022-09-02] MEDS ORDERED: PHARMACY COMMUNICATION MISC SCH (17:00)
[2022-09-02] MEDS ORDERED: WATER IVP SCH (18:00)
[2022-09-02] MEDS ORDERED: DEXTROSE 10% IVP SCH (18:00)
[2022-09-02] MEDS ORDERED: SYRING IVP SCH (18:00)
[2022-09-02] MEDS ORDERED: SODIUM BICARB 8.4% IVP SCH (18:00)
[2022-09-02] MEDS: SODIUM BICARB IV SCH (18:40)
[2022-09-02] MEDS: DEXTROSE 10% IV SCH (18:40)
[2022-09-02] MEDS: WATER IV SCH (18:40)
[2022-09-02 20:00] VITALS: BP_SYST 139; BP_SYST 144; BP_DIAS 51; BP_DIAS 58
[2022-09-03] VITALS (24 sets, daily range): BP systolic 108–188; BP diastolic 57–103
[2022-09-03] MEDS ORDERED: BISACODYL 10 MG SUPP.RECT RC PRN
[2022-09-03] MEDS ORDERED: POLYETHYLENE GLYCOL 3350 17 GM POWD.PACK PO ONE
[2022-09-03] MEDS ORDERED: BISACODYL 10 MG SUPP.RECT RC ONE
[2022-09-03] MEDS ORDERED: LACTULOSE 20 GM/30 ML UDCUP PO PRN (01:30)
[2022-09-03] MEDS: MEROPENEM 500 MG VIAL IVP SCH ×2 (03:15→15:45)
[2022-09-03 03:49] LABS: HEMATOCRIT 22.5 % (36-48); MEAN CORPUSCULAR HEMOGLOBIN 29.5 pg (27.0-33.0); MEAN CORPUSCULAR HGB CONC 33.3 g/dL (32.0-36.0); MEAN CORPUSCULAR VOLUME 88.6 fL (79-99); RED BLOOD CELL COUNT(AUTO) 2.54 MIL/uL (4.00-5.50); RED CELL DISTRIBUTION WIDTH 15.9 % (11.0-15.5); WHITE BLOOD COUNT (AUTO) 8.8 K/uL (4.8-10.8)
[2022-09-03 04:02] LABS: CREATININE 3.7 mg/dL (0.5-1.5); MAGNESIUM 1.7 mg/dL (1.80-2.40); POTASSIUM 4.2 mmol/L (3.5-5.1)
[2022-09-03] MEDS ORDERED: LEVOTHYROXINE 100MCG VIAL IV SCH (06:30)
[2022-09-03] MEDS: DEXTROSE 10% IV SCH (09:20)
[2022-09-03] MEDS: WATER IV SCH (09:20)
[2022-09-03] MEDS: SODIUM BICARB IV SCH (09:20)
[2022-09-03] MEDS ORDERED: FUROSEMIDE 100MG VIAL IVP SCH (09:30)
[2022-09-03] MEDS: NIFEDIPINE 10 MG CAP PO SCH ×2 (09:54→14:00)
[2022-09-03] MEDS: ISOSORBIDE DINITRATE 10MG TAB PO SCH (09:54)
[2022-09-03] MEDS: HYDRALAZINE 25MG TABLET PO SCH ×2 (09:54→14:00)
[2022-09-03] MEDS: IRON SUCROSE COMPLEX 100 MG/5 ML VIAL IVP SCH (09:55)
[2022-09-03] MEDS: HEPARIN 5,000 UNIT VIAL SQ SCH (09:55)
[2022-09-03] MEDS: POLYETHYLENE GLYCOL 3350 17 GM POWD.PACK PO SCH (09:56)
[2022-09-03] MEDS ORDERED: HYDROCORTISONE 25 MG SUPPOSITORY PR PRN (12:00)
[2022-09-03] MEDS ORDERED: LIDOCAINE HCL-MPF 2% 5ML VIAL ONE (17:15)
[2022-09-03] MEDS ORDERED: HEPARIN 1,000 UNIT VIAL ONE (17:15)
[2022-09-03 21:06] LABS: HEMATOCRIT 21.1 % (36-48)
[2022-09-03 21:18] LABS: CREATININE 3.3 mg/dL (0.5-1.5)
[2022-09-03 22:07] LABS: % IRON SATURATION 94.2 % (22-44)
[2022-09-03] MEDS: HEPARIN 5,000 UNIT VIAL IJ SCH (22:42)
[2022-09-04] VITALS (19 sets, daily range): BP systolic 113–204; BP diastolic 44–97
[2022-09-04] MEDS: ISOSORBIDE DINITRATE 10MG TAB PO SCH (00:18)
[2022-09-04] MEDS: HYDRALAZINE 25MG TABLET PO SCH ×4 (00:18→21:38)
[2022-09-04] MEDS: NIFEDIPINE 10 MG CAP PO SCH (00:18)
[2022-09-04] MEDS: HEPARIN 5,000 UNIT VIAL SQ SCH ×3 (00:19→21:45)
[2022-09-04] MEDS: MEROPENEM 500 MG VIAL IVP SCH ×2 (02:49→14:28)
[2022-09-04 05:02] LABS: HEMATOCRIT 22.4 % (36-48); MEAN CORPUSCULAR HEMOGLOBIN 29.4 pg (27.0-33.0); MEAN CORPUSCULAR HGB CONC 33.5 g/dL (32.0-36.0); MEAN CORPUSCULAR VOLUME 87.8 fL (79-99); NUCLEATED RED BLOOD CELLS 3.6 % (0.0-0.19); RED BLOOD CELL COUNT(AUTO) 2.55 MIL/uL (4.00-5.50); RED CELL DISTRIBUTION WIDTH 15.6 % (11.0-15.5); WHITE BLOOD COUNT (AUTO) 7.6 K/uL (4.8-10.8)
[2022-09-04 05:13] LABS: CREATININE 2.7 mg/dL (0.5-1.5); MAGNESIUM 1.8 mg/dL (1.80-2.40); POTASSIUM 3.6 mmol/L (3.5-5.1)
[2022-09-04 05:47] LABS: HEPATITIS B SURFACE ANTIGEN Non-Reactive (Nonreactive)
[2022-09-04] MEDS: POLYETHYLENE GLYCOL 3350 17 GM POWD.PACK PO SCH (08:14)
[2022-09-04] MEDS: LEVOTHYROXINE 100MCG VIAL IV SCH (10:17)
[2022-09-04] MEDS: IRON SUCROSE COMPLEX 100 MG/5 ML VIAL IVP SCH (10:17)
[2022-09-04] MEDS ORDERED: EPOETIN ALFA-EPBX (NON-ESRD) 10,000 UNIT/ML VIAL SQ SCH ×2 (14:30→21:00)
[2022-09-04] MEDS: HEPARIN 5,000 UNIT VIAL IJ SCH (20:15)
[2022-09-05] VITALS (23 sets, daily range): BP systolic 90–206; BP diastolic 52–96
[2022-09-05] MEDS ORDERED: CLONIDINE HCL 0.2 MG TABLET PO ONE ×2 (00:37→00:45)
[2022-09-05] MEDS ORDERED: HYDRALAZINE 20MG/ML VIAL IV PRN (01:00)
[2022-09-05] MEDS ORDERED: LABETALOL 20MG SYG IV PRN (01:00)
[2022-09-05] MEDS: MEROPENEM 500 MG VIAL IVP SCH ×2 (02:31→15:02)
[2022-09-05 04:31] LABS: HEMATOCRIT 21.4 % (36-48); MEAN CORPUSCULAR HEMOGLOBIN 29.4 pg (27.0-33.0); MEAN CORPUSCULAR HGB CONC 32.7 g/dL (32.0-36.0); MEAN CORPUSCULAR VOLUME 89.9 fL (79-99); NUCLEATED RED BLOOD CELLS 2.6 % (0.0-0.19); RED BLOOD CELL COUNT(AUTO) 2.38 MIL/uL (4.00-5.50); RED CELL DISTRIBUTION WIDTH 15.7 % (11.0-15.5); WHITE BLOOD COUNT (AUTO) 5.8 K/uL (4.8-10.8)
[2022-09-05 04:42] LABS: MAGNESIUM 1.6 mg/dL (1.80-2.40); POTASSIUM 3.7 mmol/L (3.5-5.1)
[2022-09-05] MEDS: LEVOTHYROXINE 100MCG VIAL IV SCH (06:32)
[2022-09-05] MEDS: MAGNESIUM 2GM PREMIX 50ML 50 ML IV SCH (06:33)
[2022-09-05] MEDS: HYDRALAZINE 25MG TABLET PO SCH ×3 (09:33→22:17)
[2022-09-05] MEDS: NIFEDIPINE ER 30 MG TAB PO SCH (09:33)
[2022-09-05] MEDS: IRON SUCROSE COMPLEX 100 MG/5 ML VIAL IVP SCH (09:33)
[2022-09-05] MEDS: POLYETHYLENE GLYCOL 3350 17 GM POWD.PACK PO SCH (09:33)
[2022-09-05] MEDS: HEPARIN 5,000 UNIT VIAL SQ SCH ×2 (10:07→22:18)
[2022-09-05] MEDS: CLONIDINE HCL 0.1 MG TABLET PO PRN (11:06)
[2022-09-05] MEDS: HEPARIN 5,000 UNIT VIAL IJ SCH ×2 (15:00→20:31)
[2022-09-06] MEDS: MEROPENEM 500 MG VIAL IVP SCH ×2 (02:26→15:27)
[2022-09-06 03:38] VITALS: BP 140/65
[2022-09-06 04:46] LABS: HEMATOCRIT 23.3 % (36-48); MEAN CORPUSCULAR HEMOGLOBIN 29.3 pg (27.0-33.0); MEAN CORPUSCULAR HGB CONC 32.6 g/dL (32.0-36.0); NUCLEATED RED BLOOD CELLS 3.9 % (0.0-0.19); RED BLOOD CELL COUNT(AUTO) 2.59 MIL/uL (4.00-5.50); RED CELL DISTRIBUTION WIDTH 15.6 % (11.0-15.5); WHITE BLOOD COUNT (AUTO) 6.1 K/uL (4.8-10.8)
[2022-09-06 04:58] LABS: CREATININE 1.8 mg/dL (0.5-1.5); POTASSIUM 3.5 mmol/L (3.5-5.1)
[2022-09-06] MEDS: LEVOTHYROXINE 100MCG VIAL IV SCH (07:09)
[2022-09-06 08:00] VITALS: BP 149/74
[2022-09-06] MEDS: HYDRALAZINE 25MG TABLET PO SCH ×3 (08:44→20:05)
[2022-09-06] MEDS: POLYETHYLENE GLYCOL 3350 17 GM POWD.PACK PO SCH (08:44)
[2022-09-06] MEDS: IRON SUCROSE COMPLEX 100 MG/5 ML VIAL IVP SCH (08:44)
[2022-09-06] MEDS: NIFEDIPINE ER 30 MG TAB PO SCH (08:44)
[2022-09-06] MEDS: HEPARIN 5,000 UNIT VIAL SQ SCH ×2 (08:45→20:05)
[2022-09-06 12:11] VITALS: BP 151/67
[2022-09-06] MEDS: HEPARIN 5,000 UNIT VIAL IJ SCH (15:00)
[2022-09-06 16:00] VITALS: BP 151/75
[2022-09-06 20:24] VITALS: BP 125/67
[2022-09-07] VITALS (7 sets, daily range): BP systolic 122–168; BP diastolic 60–91
[2022-09-07] MEDS: MEROPENEM 500 MG VIAL IVP SCH ×2 (03:24→15:35)
[2022-09-07 04:59] LABS: CREATININE 2.2 mg/dL (0.5-1.5); HEMATOCRIT 21.2 % (36-48); MEAN CORPUSCULAR HGB CONC 32.5 g/dL (32.0-36.0); MEAN CORPUSCULAR VOLUME 89.1 fL (79-99); NUCLEATED RED BLOOD CELLS 2.4 % (0.0-0.19); POTASSIUM 3.5 mmol/L (3.5-5.1); RED BLOOD CELL COUNT(AUTO) 2.38 MIL/uL (4.00-5.50); RED CELL DISTRIBUTION WIDTH 15.5 % (11.0-15.5); WHITE BLOOD COUNT (AUTO) 6.6 K/uL (4.8-10.8)
[2022-09-07] MEDS: LEVOTHYROXINE 100MCG VIAL IV SCH (06:22)
[2022-09-07 08:17] LABS: HEMATOCRIT 22.4 % (36-48)
[2022-09-07] MEDS: IRON SUCROSE COMPLEX 100 MG/5 ML VIAL IVP SCH (09:26)
[2022-09-07] MEDS: NIFEDIPINE ER 30 MG TAB PO SCH (09:26)
[2022-09-07] MEDS: HYDRALAZINE 25MG TABLET PO SCH ×3 (09:27→20:55)
[2022-09-07] MEDS: POLYETHYLENE GLYCOL 3350 17 GM POWD.PACK PO SCH (09:27)
[2022-09-07] MEDS: HEPARIN 5,000 UNIT VIAL SQ SCH ×2 (09:29→21:05)
[2022-09-07] MEDS: HEPARIN 5,000 UNIT VIAL IJ SCH (15:00)
[2022-09-08] VITALS (21 sets, daily range): BP systolic 128–189; BP diastolic 65–91
[2022-09-08] MEDS: MEROPENEM 500 MG VIAL IVP SCH ×2 (02:35→18:35)
[2022-09-08 04:49] LABS: HEMATOCRIT 21.5 % (36-48); MEAN CORPUSCULAR HGB CONC 33.5 g/dL (32.0-36.0); MEAN CORPUSCULAR VOLUME 89.6 fL (79-99); RED BLOOD CELL COUNT(AUTO) 2.4 MIL/uL (4.00-5.50); RED CELL DISTRIBUTION WIDTH 15.5 % (11.0-15.5)
[2022-09-08 05:01] LABS: CREATININE 2.4 mg/dL (0.5-1.5); POTASSIUM 3.6 mmol/L (3.5-5.1)
[2022-09-08] MEDS: LEVOTHYROXINE 100MCG VIAL IV SCH (05:18)
[2022-09-08] MEDS: IRON SUCROSE COMPLEX 100 MG/5 ML VIAL IVP SCH (08:37)
[2022-09-08] MEDS: HEPARIN 5,000 UNIT VIAL SQ SCH ×2 (08:39→20:23)
[2022-09-08] MEDS: NIFEDIPINE ER 30 MG TAB PO SCH ×2 (09:00→18:38)
[2022-09-08] MEDS: POLYETHYLENE GLYCOL 3350 17 GM POWD.PACK PO SCH (09:00)
[2022-09-08] MEDS: HYDRALAZINE 25MG TABLET PO SCH ×3 (09:00→18:38)
[2022-09-08] MEDS ORDERED: LINA5TAB PO (11:56)
[2022-09-08] MEDS ORDERED: LEVO75CA5 PO (11:56)
[2022-09-08] MEDS: HEPARIN 5,000 UNIT VIAL IJ SCH ×2 (15:00→18:31)
[2022-09-08] MEDS ORDERED: PHARMACY COMMUNICATION MISC SCH (21:00)
[2022-09-08] MEDS ORDERED: PERMETHRIN LOTION 1% 59ML BOTTLE TP ONE (22:00)
[2022-09-09] MEDS: MEROPENEM 500 MG VIAL IVP SCH ×2 (02:18→13:53)
[2022-09-09 04:27] VITALS: BP 140/72
[2022-09-09] MEDS: LEVOTHYROXINE 100MCG VIAL IV SCH (06:00)
[2022-09-09 08:00] VITALS: BP 160/74
[2022-09-09] MEDS: HYDRALAZINE 25MG TABLET PO SCH ×3 (08:35→20:44)
[2022-09-09] MEDS: POLYETHYLENE GLYCOL 3350 17 GM POWD.PACK PO SCH (08:35)
[2022-09-09] MEDS: NIFEDIPINE ER 30 MG TAB PO SCH (08:35)
[2022-09-09] MEDS: IRON SUCROSE COMPLEX 100 MG/5 ML VIAL IVP SCH (08:35)
[2022-09-09 08:36] LABS: HEMATOCRIT 21.5 % (36-48); MEAN CORPUSCULAR HEMOGLOBIN 30.1 pg (27.0-33.0); MEAN CORPUSCULAR HGB CONC 33.5 g/dL (32.0-36.0); NUCLEATED RED BLOOD CELLS 0.6 % (0.0-0.19); RED BLOOD CELL COUNT(AUTO) 2.39 MIL/uL (4.00-5.50); RED CELL DISTRIBUTION WIDTH 15.8 % (11.0-15.5); WHITE BLOOD COUNT (AUTO) 6.7 K/uL (4.8-10.8)
[2022-09-09] MEDS: HEPARIN 5,000 UNIT VIAL SQ SCH ×2 (08:36→20:45)
[2022-09-09 08:44] LABS: CREATININE 1.7 mg/dL (0.5-1.5); POTASSIUM 3.1 mmol/L (3.5-5.1)
[2022-09-09 13:32] VITALS: BP 150/79
[2022-09-09 17:25] VITALS: BP 152/66
[2022-09-09 20:00] VITALS: BP 143/52
[2022-09-10] VITALS (7 sets, daily range): BP systolic 128–158; BP diastolic 60–76
[2022-09-10] MEDS: MEROPENEM 500 MG VIAL IVP SCH ×2 (02:34→14:34)
[2022-09-10 05:34] LABS: HEMATOCRIT 23.4 % (36-48); MEAN CORPUSCULAR HEMOGLOBIN 29.3 pg (27.0-33.0); MEAN CORPUSCULAR HGB CONC 32.5 g/dL (32.0-36.0); MEAN CORPUSCULAR VOLUME 90.3 fL (79-99); NUCLEATED RED BLOOD CELLS 0.5 % (0.0-0.19); RED BLOOD CELL COUNT(AUTO) 2.59 MIL/uL (4.00-5.50); RED CELL DISTRIBUTION WIDTH 15.7 % (11.0-15.5); WHITE BLOOD COUNT (AUTO) 6.1 K/uL (4.8-10.8)
[2022-09-10 06:07] LABS: ALBUMIN 1.3 g/dL (3.5-5.0); CREATININE 2.1 mg/dL (0.5-1.5); POTASSIUM 3.3 mmol/L (3.5-5.1); TOTAL PROTEIN, SERUM 5.1 g/dL (6.0-8.3)
[2022-09-10] MEDS ORDERED: POTASSIUM CHLORIDE 10MEQ/100ML 100 ML IV PRN (06:30)
[2022-09-10] MEDS ORDERED: LIDOCAINE HCL-MPF 1% 2ML VIAL IV PRN (06:30)
[2022-09-10] MEDS ORDERED: KCL 20 MEQ ERTAB PO PRN (06:30)
[2022-09-10] MEDS: POTASSIUM CHLORIDE 10% ELIXIR 20 MEQ/15 ML UDCUP PO PRN ×2 (06:33→09:41)
[2022-09-10] MEDS: LEVOTHYROXINE 100MCG VIAL IV SCH (06:33)
[2022-09-10] MEDS: POLYETHYLENE GLYCOL 3350 17 GM POWD.PACK PO SCH (09:40)
[2022-09-10] MEDS: NIFEDIPINE ER 30 MG TAB PO SCH (09:40)
[2022-09-10] MEDS: IRON SUCROSE COMPLEX 100 MG/5 ML VIAL IVP SCH (09:40)
[2022-09-10] MEDS: HEPARIN 5,000 UNIT VIAL IJ SCH (09:42)
[2022-09-10] MEDS: HEPARIN 5,000 UNIT VIAL SQ SCH ×2 (09:42→21:22)
[2022-09-10] MEDS: HYDRALAZINE 25MG TABLET PO SCH ×3 (09:43→21:21)
[2022-09-11] MEDS: MEROPENEM 500 MG VIAL IVP SCH (02:27)
[2022-09-11 03:43] VITALS: BP 167/77
[2022-09-11] MEDS: CLONIDINE HCL 0.1 MG TABLET PO PRN (03:47)
[2022-09-11 04:28] LABS: HEMATOCRIT 22.1 % (36-48); MEAN CORPUSCULAR HEMOGLOBIN 29.3 pg (27.0-33.0); MEAN CORPUSCULAR HGB CONC 32.1 g/dL (32.0-36.0); MEAN CORPUSCULAR VOLUME 91.3 fL (79-99); RED BLOOD CELL COUNT(AUTO) 2.42 MIL/uL (4.00-5.50); RED CELL DISTRIBUTION WIDTH 15.9 % (11.0-15.5); WHITE BLOOD COUNT (AUTO) 7.7 K/uL (4.8-10.8)
[2022-09-11 04:37] LABS: CREATININE 2.2 mg/dL (0.5-1.5); POTASSIUM 3.8 mmol/L (3.5-5.1)
[2022-09-11] MEDS: LEVOTHYROXINE 100MCG VIAL IV SCH (06:31)
[2022-09-11 08:02] VITALS: BP 149/69
[2022-09-11] MEDS: IRON SUCROSE COMPLEX 100 MG/5 ML VIAL IVP SCH (09:39)
[2022-09-11] MEDS: HYDRALAZINE 25MG TABLET PO SCH ×3 (09:39→20:45)
[2022-09-11] MEDS: POLYETHYLENE GLYCOL 3350 17 GM POWD.PACK PO SCH (09:39)
[2022-09-11] MEDS: NIFEDIPINE ER 30 MG TAB PO SCH (09:39)
[2022-09-11] MEDS: HEPARIN 5,000 UNIT VIAL SQ SCH ×2 (09:41→20:47)
[2022-09-11] MEDS: HEPARIN 5,000 UNIT VIAL IJ SCH (09:41)
[2022-09-11 11:14] VITALS: BP 170/78
[2022-09-11 16:05] VITALS: BP 156/72
[2022-09-11 21:41] VITALS: BP 169/80
[2022-09-12 00:14] VITALS: BP 148/54
[2022-09-12 04:15] VITALS: BP 160/70
[2022-09-12 04:45] LABS: HEMATOCRIT 22.1 % (36-48); MEAN CORPUSCULAR HEMOGLOBIN 29.6 pg (27.0-33.0); MEAN CORPUSCULAR HGB CONC 32.1 g/dL (32.0-36.0); MEAN CORPUSCULAR VOLUME 92.1 fL (79-99); RED BLOOD CELL COUNT(AUTO) 2.4 MIL/uL (4.00-5.50); RED CELL DISTRIBUTION WIDTH 15.6 % (11.0-15.5); WHITE BLOOD COUNT (AUTO) 8.5 K/uL (4.8-10.8)
[2022-09-12 05:01] LABS: CREATININE 2.4 mg/dL (0.5-1.5); POTASSIUM 3.7 mmol/L (3.5-5.1)
[2022-09-12] MEDS: LEVOTHYROXINE 100MCG VIAL IV SCH (06:00)
[2022-09-12] MEDS ORDERED: FUROSEMIDE 20MG VIAL IV SCH (07:30)
[2022-09-12] MEDS: NIFEDIPINE ER 30 MG TAB PO SCH (07:48)
[2022-09-12] MEDS: IRON SUCROSE COMPLEX 100 MG/5 ML VIAL IVP SCH (07:48)
[2022-09-12] MEDS: POLYETHYLENE GLYCOL 3350 17 GM POWD.PACK PO SCH (07:49)
[2022-09-12] MEDS: HEPARIN 5,000 UNIT VIAL SQ SCH ×2 (07:50→20:40)
[2022-09-12 08:09] VITALS: BP 151/75
[2022-09-12 10:57] VITALS: BP 158/70
[2022-09-12] MEDS: HYDRALAZINE 25MG TABLET PO SCH ×3 (11:12→20:32)
[2022-09-12] MEDS: HEPARIN 5,000 UNIT VIAL IJ SCH (15:00)
[2022-09-12 16:20] VITALS: BP 149/66
[2022-09-12 20:21] VITALS: BP 157/70
[2022-09-13] VITALS (7 sets, daily range): BP systolic 129–186; BP diastolic 61–93
[2022-09-13 05:29] LABS: HEMATOCRIT 23.1 % (36-48); MEAN CORPUSCULAR HEMOGLOBIN 29.4 pg (27.0-33.0); MEAN CORPUSCULAR HGB CONC 31.6 g/dL (32.0-36.0); MEAN CORPUSCULAR VOLUME 93.1 fL (79-99); RED BLOOD CELL COUNT(AUTO) 2.48 MIL/uL (4.00-5.50); RED CELL DISTRIBUTION WIDTH 15.9 % (11.0-15.5); WHITE BLOOD COUNT (AUTO) 7.6 K/uL (4.8-10.8)
[2022-09-13 05:33] LABS: CREATININE 2.5 mg/dL (0.5-1.5); POTASSIUM 3.7 mmol/L (3.5-5.1)
[2022-09-13] MEDS: LEVOTHYROXINE 100MCG VIAL IV SCH (06:31)
[2022-09-13] MEDS: IRON SUCROSE COMPLEX 100 MG/5 ML VIAL IVP SCH (09:09)
[2022-09-13] MEDS: HYDRALAZINE 25MG TABLET PO SCH ×2 (09:09→20:34)
[2022-09-13] MEDS: POLYETHYLENE GLYCOL 3350 17 GM POWD.PACK PO SCH (09:09)
[2022-09-13] MEDS: NIFEDIPINE ER 30 MG TAB PO SCH (09:09)
[2022-09-13] MEDS: HEPARIN 5,000 UNIT VIAL SQ SCH (09:12)
[2022-09-13] MEDS: LABETALOL 20MG SYG IV PRN (15:13)
[2022-09-13] MEDS: CLONIDINE HCL 0.1 MG TABLET PO PRN (17:35)
[2022-09-14 04:50] VITALS: BP 152/75
[2022-09-14 05:31] LABS: HEMATOCRIT 22.8 % (36-48); MEAN CORPUSCULAR HEMOGLOBIN 29.5 pg (27.0-33.0); MEAN CORPUSCULAR HGB CONC 31.6 g/dL (32.0-36.0); MEAN CORPUSCULAR VOLUME 93.4 fL (79-99); RED BLOOD CELL COUNT(AUTO) 2.44 MIL/uL (4.00-5.50); RED CELL DISTRIBUTION WIDTH 15.8 % (11.0-15.5); WHITE BLOOD COUNT (AUTO) 9.8 K/uL (4.8-10.8)
[2022-09-14 05:54] LABS: ALBUMIN 1.5 g/dL (3.5-5.0); CREATININE 2.8 mg/dL (0.5-1.5); POTASSIUM 3.8 mmol/L (3.5-5.1); TOTAL PROTEIN, SERUM 5.7 g/dL (6.0-8.3)
[2022-09-14] MEDS: LEVOTHYROXINE 100MCG VIAL IV SCH ×2 (06:33→08:23)
[2022-09-14 08:00] VITALS: BP 166/72
[2022-09-14] MEDS: HYDRALAZINE 25MG TABLET PO SCH ×2 (08:22→14:17)
[2022-09-14] MEDS: IRON SUCROSE COMPLEX 100 MG/5 ML VIAL IVP SCH (08:22)
[2022-09-14] MEDS: NIFEDIPINE ER 30 MG TAB PO SCH (08:22)
[2022-09-14] MEDS: POLYETHYLENE GLYCOL 3350 17 GM POWD.PACK PO SCH (08:23)
[2022-09-14] MEDS ORDERED: FUROSEMIDE 20 MG TABLET PO SCH (09:00)
[2022-09-14 12:00] VITALS: BP 184/80
[2022-09-14 12:23] LABS: INR 0.93 (0.85-1.15); PROTHROMBIN TIME 9.3 SEC (9.6-11.6)
[2022-09-14] MEDS ORDERED: LIDOCAINE HCL 1% 20 ML VIAL ONE (12:36)
[2022-09-14] MEDS ORDERED: CLON0.1T2 PO (13:02)
[2022-09-14] MEDS ORDERED: HYDR25 PO (13:02)
[2022-09-14] MEDS ORDERED: FURO20TA6 PO (13:02)
[2022-09-14 16:00] VITALS: BP 186/88
[2022-09-14 16:56] VITALS: BP 194/91
[2022-09-14] MEDS: LABETALOL 20MG SYG IV PRN (16:56)
== END 2022-09-14 18:30 | disposition home or self-care (01) | DRG 682 ==
LOC: EDH 14:39 → EDHIP 14:40 → 4AH 23:55
PROVIDERS: ADMIT Hospitalist; ATTEND Hospitalist
PROC: 0W9B3ZZ Drainage of Left Pleural Cavity, Percutaneous Approach (ICD-10-PCS; 2022-08-28)
PROC: 0W9B3ZZ Drainage of Left Pleural Cavity, Percutaneous Approach (ICD-10-PCS; 2022-08-31)
PROC: 02H633Z Insertion of Infusion Device into Right Atrium, Percutaneous Approach (ICD-10-PCS; principal; 2022-09-03)
PROC: B5181ZA Fluoroscopy of Superior Vena Cava using Low Osmolar Contrast, Guidance (ICD-10-PCS; 2022-09-03)
PROC: 5A1D70Z Performance of Urinary Filtration, Intermittent, Less than 6 Hours Per Day (ICD-10-PCS; 2022-09-03)
PROC: 5A1D70Z Performance of Urinary Filtration, Intermittent, Less than 6 Hours Per Day (ICD-10-PCS; 2022-09-04)
PROC: 5A1D70Z Performance of Urinary Filtration, Intermittent, Less than 6 Hours Per Day (ICD-10-PCS; 2022-09-05)
PROC: 5A1D70Z Performance of Urinary Filtration, Intermittent, Less than 6 Hours Per Day (ICD-10-PCS; 2022-09-08)
PROC: 05PYX3Z Removal of Infusion Device from Upper Vein, External Approach (ICD-10-PCS; 2022-09-14)
DX: N17.9 Acute kidney failure, unspecified (principal); E43 Unspecified severe protein-calorie malnutrition; J96.01 Acute respiratory failure with hypoxia; Z20.822 Contact with and (suspected) exposure to COVID-19; I50.33 Acute on chronic diastolic (congestive) heart failure; E87.1 Hypo-osmolality and hyponatremia; E87.20 Acidosis, unspecified; N39.0 Urinary tract infection, site not specified; Z16.12 Extended spectrum beta lactamase (ESBL) resistance; I69.351 Hemiplegia and hemiparesis following cerebral infarction affecting right dominant side; I13.2 Hypertensive heart and chronic kidney disease with heart failure and with stage 5 chronic kidney disease, or end stage renal disease; N18.5 Chronic kidney disease, stage 5; E03.9 Hypothyroidism, unspecified; E88.09 Other disorders of plasma-protein metabolism, not elsewhere classified; B96.20 Unspecified Escherichia coli [E. coli] as the cause of diseases classified elsewhere; D50.9 Iron deficiency anemia, unspecified; E11.22 Type 2 diabetes mellitus with diabetic chronic kidney disease; E11.649 Type 2 diabetes mellitus with hypoglycemia without coma; E66.01 Morbid (severe) obesity due to excess calories; E78.5 Hyperlipidemia, unspecified; I27.20 Pulmonary hypertension, unspecified; T46.6X5A Adverse effect of antihyperlipidemic and antiarteriosclerotic drugs, initial encounter; Z99.2 Dependence on renal dialysis; Z87.891 Personal history of nicotine dependence; Z87.441 Personal history of nephrotic syndrome; Z68.30 Body mass index [BMI] 30.0-30.9, adult; Y92.89 Other specified places as the place of occurrence of the external cause
CPT/HCPCS: 32555; 36415; 36558; 36589; 36600; 70450; 71045; 71046; 74176; 76700; 76770; 77001; 80048; 80053; 80061; 81001; 82040; 82042; 82436; 82533; 82550; 82565; 82575; 82728; 82746; 82803; 82945; 82948; 83036; 83520; 83540; 83550; 83605; 83615; 83735; 83874; 83880; 83930; 83935; 83986; 84100; 84133; 84155; 84156; 84157; 84300; 84439; 84443; 84481; 84484; 84520; 85014; 85018; 85025; 85027; 85045; 85610; 85730; 86038; 86160; 86162; 86200; 86215; 86235; 86255; 86376; 86431; 86592; 86701; 86704; 86706; 87071; 87077; 87088; 87186; 87205; 87340; 87390; 87520; 87635; 87804; 89051; 90935; 93005; 93306; 93356; 94660; 97039; C1729; C1750; C9803; G0378; J0696; J1644; J1756; J1940; J2185; J2405; J3475; J3490; J7030; J7070

== ENCOUNTER 2022-09-16 04:45 | Inpatient (IN) | payer OTHER ==
[~2022-09-16] VITALS: Ht 149.9 cm; Wt 66.3 kg
[~2022-09-16 04:45] MED LIST changes: +CLON0.1T2 PO; +FURO20TA6 PO; +HYDR25 PO; +LEVO75CA5 PO; +LINA5TAB PO; -METF-446 PO
[2022-09-16] MEDS ORDERED: FUROSEMIDE 40MG VIAL ONE (05:12)
[2022-09-16] MEDS ORDERED: MORPHINE 2 MG SYG ONE (05:13)
[2022-09-16 05:22] LABS: ABG BASE EXCESS -1.9 mmol/L (-2.0-3.0); ABG HCO3 22.8 mmol/L (21.0-28.0); ABG OXYGEN SATURATION 88.9 % (95.0-99.0); ABG PCO2 38 mmHg (32-45)
[2022-09-16 05:27] LABS: BASOPHILS % (AUTO) 1.2 % (0.0-5.0); HEMATOCRIT 25.7 % (36-48); MEAN CORPUSCULAR HEMOGLOBIN 30.7 pg (27.0-33.0); MEAN CORPUSCULAR HGB CONC 33.1 g/dL (32.0-36.0); MEAN CORPUSCULAR VOLUME 92.8 fL (79-99); MONOCYTES % (AUTO) 3.5 % (3.0-13.0); PLATELET COUNT (AUTO) 403 K/uL (130-400); RED BLOOD CELL COUNT(AUTO) 2.77 MIL/uL (4.00-5.50); RED CELL DISTRIBUTION WIDTH 15.5 % (11.0-15.5); WHITE BLOOD COUNT (AUTO) 11.7 K/uL (4.8-10.8)
[2022-09-16] MEDS ORDERED: FUROSEMIDE 40MG VIAL IV ONE ×2 (05:30)
[2022-09-16] MEDS ORDERED: MORPHINE 2 MG SYG IVP ONE ×2 (05:30)
[2022-09-16 05:54] LABS: B-TYPE NATRIURETIC PEPTIDE 711 pg/mL (0-100)
[2022-09-16 05:59] LABS: ALBUMIN 1.5 g/dL (3.5-5.0); CREATININE 2.7 mg/dL (0.5-1.5); POTASSIUM 5.4 mmol/L (3.5-5.1); TOTAL PROTEIN, SERUM 6.5 g/dL (6.0-8.3)
[2022-09-16] MEDS ORDERED: NITROGLYCERIN 0.4 MG SL TAB SL PRN (06:30)
[2022-09-16] MEDS ORDERED: HYDRALAZINE 20MG/ML VIAL IV ONE (06:30)
[2022-09-16] MEDS ORDERED: LIDOCAINE/PRILOCAINE CREAM 5GM TUBE TP SCH (07:30)
[2022-09-16] MEDS ORDERED: DEXTROSE 50%-WATER 50 ML DISP.SYRIN IV PRN (09:30)
[2022-09-16] MEDS ORDERED: ONDANSETRON 4MG INJ IVP PRN (09:30)
[2022-09-16] MEDS ORDERED: ACETAMINOPHEN 325 MG TAB PO PRN ×2 (09:30)
[2022-09-16] MEDS ORDERED: GLUCAGON 1MG KIT 1 MG ML IM PRN (09:30)
[2022-09-16] MEDS ORDERED: KAYEXALATE 15GM/60ML PO ONE (09:30)
[2022-09-16] MEDS: HEPARIN 5,000 UNIT VIAL SQ SCH ×2 (10:09→22:31)
[2022-09-16] MEDS: FUROSEMIDE 40MG VIAL IV SCH ×2 (10:10→20:48)
[2022-09-16] MEDS ORDERED: CLONIDINE HCL 0.1 MG TABLET PO PRN (12:00)
[2022-09-16] MEDS ORDERED: NA ZIRCON CYCLOSIL(LOKELMA 10GM) PO SCH (12:00)
[2022-09-16 12:21] LABS: APPEARANCE,URINE CLEAR (CLEAR); BILIRUBIN,URINE NEGATIVE (NEGATIVE); COLOR,URINE LIGHT-YELLOW (YELLOW); GLUCOSE, URINE (UA) 300 mg/dL (NEGATIVE); KETONES,URINE 10 mg/dL (NEGATIVE); LEUKOCYTE ESTERASE ,URINE NEGATIVE Leu/uL (NEGATIVE); NITRATE,URINE NEGATIVE (NEGATIVE); OCCULT BLOOD,URINE SMALL (NEGATIVE); PH,URINE 6.5 (5.0-8.0); PROTEIN,URINE 600 mg/dL (NEGATIVE); UROBILINOGEN,URINE 0.2 mg/dL (0.2-1.0)
[2022-09-16 12:22] LABS: HCG,QUALITATIVE URINE NEGATIVE (NEGATIVE)
[2022-09-16] MEDS: HYDRALAZINE 20MG/ML VIAL IV PRN ×2 (12:26→18:06)
[2022-09-16 12:28] LABS: INR 0.93 (0.85-1.15); PROTHROMBIN TIME 9.8 SEC (9.6-11.6)
[2022-09-16 12:29] LABS: PARTIAL THROMBOPLASTIN TIME 38.3 SEC (26.3-35.5)
[2022-09-16 12:32] LABS: AMPHET/METH SCREEN,URINE NEGATIVE (NEGATIVE); BARBITURATE SCREEN, URINE NEGATIVE (NEGATIVE); BENZODIAZEPINES SCREEN,URINE NEGATIVE (NEGATIVE); CANNABINOID SCREEN,URINE NEGATIVE (NEGATIVE); COCAINE SCREEN,URINE NEGATIVE (NEGATIVE); OPIATE SCREEN,URINE NEGATIVE (NEGATIVE); PHENCYCLIDINE SCREEN,URINE NEGATIVE (NEGATIVE)
[2022-09-16 12:37] LABS: BACTERIA,URINE RARE /HPF (None Seen); MUCUS,URINE RARE LPF (None Seen); SQUAMOUS EPITHELIAL CELL,UR RARE /HPF (0-2)
[2022-09-16 12:41] LABS: INFLUENZA TYPE A NEGATIVE FOR TYPE A (NEG); INFLUENZA TYPE B NEGATIVE FOR TYPE B (NEG); THYROID STIMULATING HORMONE 15.86 uIU/mL (0.36-3.74)
[2022-09-16] MEDS: HYDRALAZINE 25MG TABLET PO SCH ×3 (13:00→20:48)
[2022-09-16] MEDS ORDERED: SODIUM CHLORIDE 3% FOR INHALATION 4 ML/AMP VIAL.NEB IH ONE (15:09)
[2022-09-17 01:00] VITALS: BP 181/76
[2022-09-17 03:20] LABS: HEMATOCRIT 22.1 % (36-48); MEAN CORPUSCULAR HEMOGLOBIN 30.5 pg (27.0-33.0); MEAN CORPUSCULAR HGB CONC 32.6 g/dL (32.0-36.0); MEAN CORPUSCULAR VOLUME 93.6 fL (79-99); RED BLOOD CELL COUNT(AUTO) 2.36 MIL/uL (4.00-5.50); RED CELL DISTRIBUTION WIDTH 15.4 % (11.0-15.5); WHITE BLOOD COUNT (AUTO) 6.2 K/uL (4.8-10.8)
[2022-09-17 03:38] LABS: ALBUMIN 1.4 g/dL (3.5-5.0); CREATININE 2.8 mg/dL (0.5-1.5); POTASSIUM 3.6 mmol/L (3.5-5.1); TOTAL PROTEIN, SERUM 5.4 g/dL (6.0-8.3)
[2022-09-17 04:24] VITALS: BP 159/73
[2022-09-17] MEDS: LEVOTHYROXINE 100 MCG TABLET PO SCH (06:11)
[2022-09-17 08:00] VITALS: BP 124/66
[2022-09-17] MEDS: HEPARIN 5,000 UNIT VIAL SQ SCH ×2 (09:09→21:19)
[2022-09-17] MEDS: FUROSEMIDE 40MG VIAL IV SCH ×2 (09:12→21:17)
[2022-09-17] MEDS: HYDRALAZINE 25MG TABLET PO SCH ×4 (09:12→21:17)
[2022-09-17 12:17] VITALS: BP 156/71
[2022-09-17] MEDS ORDERED: LIDOCAINE HCL MPF 1% 5ML VIAL ONE (15:40)
[2022-09-17 16:00] VITALS: BP 160/73
[2022-09-17 19:46] LABS: APPEARANCE BODY FLUID SLIGHTLY CLOUDY (CLEAR); COLOR,BODY FLUID LT YELLOW (LT YELLOW); SPECIMENTYPE,BODY FLUID PLEURAL
[2022-09-17 19:47] LABS: BODY FLUID RBC 72 /cu. mm.; BODY FLUID WBC 11 /cu. mm.; TOTAL VOLUME,BODY FLUID 1150 mL
[2022-09-17 20:04] VITALS: BP 162/72
[2022-09-17 20:06] LABS: BF LYMPHOCYTE 10 %; BF MONOCYTE 2 %; BF OTHER CELLS 2
[2022-09-18] VITALS (7 sets, daily range): BP systolic 151–194; BP diastolic 65–84
[2022-09-18] MEDS: GUAIFENESIN-CODEINE 5 ML SYRUP PO PRN ×2 (03:06→20:37)
[2022-09-18 03:22] LABS: HEMATOCRIT 21.9 % (36-48); MEAN CORPUSCULAR HEMOGLOBIN 30.6 pg (27.0-33.0); MEAN CORPUSCULAR HGB CONC 32.9 g/dL (32.0-36.0); MEAN CORPUSCULAR VOLUME 93.2 fL (79-99); RED BLOOD CELL COUNT(AUTO) 2.35 MIL/uL (4.00-5.50); RED CELL DISTRIBUTION WIDTH 15.1 % (11.0-15.5); WHITE BLOOD COUNT (AUTO) 8.5 K/uL (4.8-10.8)
[2022-09-18 03:41] LABS: % IRON SATURATION 27.4 % (22-44)
[2022-09-18 04:32] LABS: ALBUMIN 1.2 g/dL (3.5-5.0); CREATININE 3.1 mg/dL (0.5-1.5); POTASSIUM 3.3 mmol/L (3.5-5.1); TOTAL PROTEIN, SERUM 5.1 g/dL (6.0-8.3)
[2022-09-18] MEDS: LEVOTHYROXINE 100 MCG TABLET PO SCH (06:29)
[2022-09-18] MEDS ORDERED: KCL 20 MEQ ERTAB PO PRN (06:30)
[2022-09-18] MEDS ORDERED: POTASSIUM CHLORIDE 10MEQ/100ML 100 ML IV PRN (06:30)
[2022-09-18] MEDS: METOPROLOL TARTRATE 50 MG TAB PO SCH ×3 (08:59→21:14)
[2022-09-18] MEDS: AMLODIPINE 5 MG TAB PO SCH (08:59)
[2022-09-18] MEDS: HYDRALAZINE 25MG TABLET PO SCH ×4 (09:00→20:40)
[2022-09-18] MEDS ORDERED: LISINOPRIL 20 MG TABLET PO SCH (09:00)
[2022-09-18] MEDS: FUROSEMIDE 40MG VIAL IV SCH ×2 (09:00→21:41)
[2022-09-18] MEDS ORDERED: CLOPIDOGREL 75MG TAB PO SCH (09:00)
[2022-09-18] MEDS: HEPARIN 5,000 UNIT VIAL SQ SCH ×2 (10:00→20:39)
[2022-09-18] MEDS: ATORVASTATIN 40 MG TABLET PO SCH (20:40)
[2022-09-18] MEDS: POTASSIUM CHLORIDE 10% ELIXIR 20 MEQ/15 ML UDCUP PO PRN (21:46)
[2022-09-19] MEDS: POTASSIUM CHLORIDE 10% ELIXIR 20 MEQ/15 ML UDCUP PO PRN (03:30)
[2022-09-19 04:38] VITALS: BP 169/75
[2022-09-19 06:12] LABS: MEAN CORPUSCULAR HEMOGLOBIN 29.9 pg (27.0-33.0); MEAN CORPUSCULAR VOLUME 93.2 fL (79-99); RED BLOOD CELL COUNT(AUTO) 2.21 MIL/uL (4.00-5.50); RED CELL DISTRIBUTION WIDTH 14.7 % (11.0-15.5)
[2022-09-19 06:21] LABS: HEMATOCRIT 20.6 % (36-48)
[2022-09-19 06:32] LABS: CREATININE 3.2 mg/dL (0.5-1.5); POTASSIUM 3.6 mmol/L (3.5-5.1)
[2022-09-19] MEDS: LEVOTHYROXINE 100 MCG TABLET PO SCH (06:44)
[2022-09-19 08:52] VITALS: BP 181/72
[2022-09-19] MEDS: METOPROLOL TARTRATE 50 MG TAB PO SCH ×2 (11:40→20:16)
[2022-09-19] MEDS: PANTOPRAZOLE 40 MG TAB DR PO SCH (11:40)
[2022-09-19] MEDS: HYDRALAZINE 25MG TABLET PO SCH ×3 (11:41→20:17)
[2022-09-19] MEDS: AMLODIPINE 5 MG TAB PO SCH (11:41)
[2022-09-19] MEDS: HEPARIN 5,000 UNIT VIAL SQ SCH (11:42)
[2022-09-19] MEDS: FUROSEMIDE 40MG VIAL IV SCH ×2 (11:43→20:18)
[2022-09-19 12:20] VITALS: BP 176/76
[2022-09-19 16:35] VITALS: BP 144/73
[2022-09-19 19:17] VITALS: BP 142/73
[2022-09-19] MEDS: ATORVASTATIN 40 MG TABLET PO SCH (20:17)
[2022-09-20 00:15] VITALS: BP 158/77
[2022-09-20] MEDS: HEPARIN 5,000 UNIT VIAL SQ SCH ×3 (00:49→21:25)
[2022-09-20] MEDS: LEVOTHYROXINE 100 MCG TABLET PO SCH (05:30)
[2022-09-20 05:58] LABS: HEMATOCRIT 25.9 % (36-48); MEAN CORPUSCULAR HEMOGLOBIN 29.5 pg (27.0-33.0); MEAN CORPUSCULAR HGB CONC 32.4 g/dL (32.0-36.0); MEAN CORPUSCULAR VOLUME 90.9 fL (79-99); RED BLOOD CELL COUNT(AUTO) 2.85 MIL/uL (4.00-5.50); RED CELL DISTRIBUTION WIDTH 14.8 % (11.0-15.5); WHITE BLOOD COUNT (AUTO) 5.8 K/uL (4.8-10.8)
[2022-09-20] MEDS: PANTOPRAZOLE 40 MG TAB DR PO SCH (06:43)
[2022-09-20 06:54] LABS: CREATININE 3.2 mg/dL (0.5-1.5); POTASSIUM 3.6 mmol/L (3.5-5.1)
[2022-09-20 08:30] VITALS: BP 178/79
[2022-09-20] MEDS ORDERED: PHARMACY COMMUNICATION MISC SCH (09:30)
[2022-09-20] MEDS ORDERED: LEVOFLOXACIN 500 MG TABLET PO SCH (09:54)
[2022-09-20] MEDS: AMLODIPINE 5 MG TAB PO SCH (10:00)
[2022-09-20] MEDS: FUROSEMIDE 40MG VIAL IV SCH ×2 (10:00→21:08)
[2022-09-20] MEDS: METOPROLOL TARTRATE 50 MG TAB PO SCH ×2 (10:00→21:07)
[2022-09-20] MEDS: HYDRALAZINE 25MG TABLET PO SCH ×3 (10:01→21:07)
[2022-09-20 12:42] VITALS: BP 142/64
[2022-09-20 16:49] VITALS: BP 145/72
[2022-09-20 19:10] VITALS: BP 152/87
[2022-09-20] MEDS: ATORVASTATIN 40 MG TABLET PO SCH (21:07)
[2022-09-20 23:42] VITALS: BP 162/63
[2022-09-21 04:15] VITALS: BP 149/74
[2022-09-21 04:53] LABS: BASOPHILS % (AUTO) 2.3 % (0.0-5.0); EOSINOPHILS % (AUTO) 7.3 % (0.0-8.0); HEMATOCRIT 28.5 % (36-48); LYMPHOCYTES % (AUTO) 16.6 % (21.0-51.0); MEAN CORPUSCULAR HEMOGLOBIN 29.7 pg (27.0-33.0); MEAN CORPUSCULAR VOLUME 90.2 fL (79-99); MONOCYTES % (AUTO) 7.3 % (3.0-13.0); NEUTROPHILS % (AUTO) 66.1 % (40.0-77.0); PLATELET COUNT (AUTO) 390 K/uL (130-400); RED BLOOD CELL COUNT(AUTO) 3.16 MIL/uL (4.00-5.50); RED CELL DISTRIBUTION WIDTH 14.6 % (11.0-15.5); WHITE BLOOD COUNT (AUTO) 5.2 K/uL (4.8-10.8)
[2022-09-21 05:16] LABS: ALBUMIN 1.3 g/dL (3.5-5.0); CREATININE 3.2 mg/dL (0.5-1.5); MAGNESIUM 1.8 mg/dL (1.80-2.40); POTASSIUM 3.6 mmol/L (3.5-5.1); TOTAL PROTEIN, SERUM 5.3 g/dL (6.0-8.3)
[2022-09-21] MEDS: LEVOTHYROXINE 100 MCG TABLET PO SCH (06:04)
[2022-09-21 07:09] VITALS: BP 146/61
[2022-09-21] MEDS: PANTOPRAZOLE 40 MG TAB DR PO SCH ×2 (07:16→08:41)
[2022-09-21] MEDS: AMLODIPINE 5 MG TAB PO SCH (08:41)
[2022-09-21] MEDS: METOPROLOL TARTRATE 50 MG TAB PO SCH ×2 (08:41→22:35)
[2022-09-21] MEDS: HYDRALAZINE 25MG TABLET PO SCH ×3 (08:41→22:35)
[2022-09-21] MEDS: FUROSEMIDE 40MG VIAL IV SCH ×2 (08:42→22:36)
[2022-09-21] MEDS: HEPARIN 5,000 UNIT VIAL SQ SCH ×2 (08:50→22:21)
[2022-09-21 11:33] VITALS: BP 134/59
[2022-09-21 15:24] VITALS: BP 148/70
[2022-09-21 19:00] VITALS: BP 159/80
[2022-09-21] MEDS: ATORVASTATIN 40 MG TABLET PO SCH (22:35)
[2022-09-22] VITALS: BP 157/74
[2022-09-22 03:00] VITALS: BP 144/68
[2022-09-22] MEDS: LEVOTHYROXINE 100 MCG TABLET PO SCH (06:22)
[2022-09-22 08:00] VITALS: BP 176/73
[2022-09-22 08:19] LABS: HEMATOCRIT 28.7 % (36-48); MEAN CORPUSCULAR HEMOGLOBIN 29.5 pg (27.0-33.0); MEAN CORPUSCULAR HGB CONC 32.8 g/dL (32.0-36.0); RED BLOOD CELL COUNT(AUTO) 3.19 MIL/uL (4.00-5.50); RED CELL DISTRIBUTION WIDTH 14.4 % (11.0-15.5); WHITE BLOOD COUNT (AUTO) 4.5 K/uL (4.8-10.8)
[2022-09-22 08:50] LABS: CREATININE 3.3 mg/dL (0.5-1.5); POTASSIUM 3.4 mmol/L (3.5-5.1)
[2022-09-22] MEDS ORDERED: LEVOFLOXACIN 500 MG TABLET PO SCH (09:00)
[2022-09-22] MEDS ORDERED: FUROSEMIDE 20 MG TABLET PO SCH (09:00)
[2022-09-22] MEDS: HYDRALAZINE 25MG TABLET PO SCH ×2 (09:56→14:39)
[2022-09-22] MEDS: METOPROLOL TARTRATE 50 MG TAB PO SCH (09:56)
[2022-09-22] MEDS: AMLODIPINE 5 MG TAB PO SCH (09:56)
[2022-09-22] MEDS: FUROSEMIDE 20 MG TABLET PO SCH ×2 (09:58→17:40)
[2022-09-22] MEDS: HEPARIN 5,000 UNIT VIAL SQ SCH (10:00)
[2022-09-22 12:00] VITALS: BP 139/69
[2022-09-22] MEDS ORDERED: LEVO100C4 PO (13:07)
[2022-09-22] MEDS ORDERED: LEVO250T75 PO (13:07)
[2022-09-22] MEDS ORDERED: METO100T14 PO (13:07)
[2022-09-22] MEDS ORDERED: FURO40TA5 PO (13:07)
[2022-09-22 16:00] VITALS: BP 139/65
== END 2022-09-22 19:25 | disposition home or self-care (01) | DRG 189 ==
LOC: EDH 04:45 → EDHIP 04:46 → 2AH 23:55
PROVIDERS: ADMIT Hospitalist; ATTEND Hospitalist
PROC: 5A09357 Assistance with Respiratory Ventilation, Less than 24 Consecutive Hours, Continuous Positive Airway Pressure (ICD-10-PCS; 2022-09-16)
PROC: 0W9B3ZZ Drainage of Left Pleural Cavity, Percutaneous Approach (ICD-10-PCS; principal; 2022-09-17)
PROC: 30233N1 Transfusion of Nonautologous Red Blood Cells into Peripheral Vein, Percutaneous Approach (ICD-10-PCS; 2022-09-17)
DX: J96.01 Acute respiratory failure with hypoxia (principal); N18.6 End stage renal disease; J90 Pleural effusion, not elsewhere classified; Z20.822 Contact with and (suspected) exposure to COVID-19; I12.0 Hypertensive chronic kidney disease with stage 5 chronic kidney disease or end stage renal disease; E87.1 Hypo-osmolality and hyponatremia; I16.1 Hypertensive emergency; N17.9 Acute kidney failure, unspecified; I69.351 Hemiplegia and hemiparesis following cerebral infarction affecting right dominant side; M62.82 Rhabdomyolysis; E87.70 Fluid overload, unspecified; E03.9 Hypothyroidism, unspecified; D64.9 Anemia, unspecified; E11.22 Type 2 diabetes mellitus with diabetic chronic kidney disease; E78.00 Pure hypercholesterolemia, unspecified; E87.5 Hyperkalemia; Z79.899 Other long term (current) drug therapy; Z86.19 Personal history of other infectious and parasitic diseases; Z87.891 Personal history of nicotine dependence; Z99.2 Dependence on renal dialysis
CPT/HCPCS: 36415; 36600; 71045; 80048; 80053; 80305; 81001; 81025; 82435; 82550; 82803; 82947; 82948; 83540; 83550; 83605; 83615; 83735; 83874; 83880; 84132; 84145; 84157; 84295; 84439; 84443; 84481; 84484; 85018; 85025; 85027; 85610; 85651; 85730; 86140; 86850; 86900; 86901; 86922; 87071; 87077; 87088; 87186; 87205; 87635; 87804; 89051; 93005; 94640; 94660; 97039; 99291; G0378; J0360; J1644; J1940; J3490; P9016